=== PATIENT | female | born 1960 | race Caucasian/White ===

== ENCOUNTER → 2017-01-20 | Outpatient (CLI) | payer BC | LOC: US 15:49 | DX: M54.9 Dorsalgia, unspecified (principal); Z85.528 Personal history of other malignant neoplasm of kidney | CPT/HCPCS: 76775 ==

== ENCOUNTER → 2017-01-21 | Outpatient (CLI) | payer BC ==
[2017-01-21 08:30] LABS: HEMOGLOBIN 14.2 gm/dl (12.3-15.3); RED BLOOD COUNT 4.37 M/UL (4.00-5.10); WHITE BLOOD COUNT 11.8 K/UL (4.5-11.0)
== END ==
LOC: LAB 08:02
PROVIDERS: Internal Medicine
DX: Z13.1 Encounter for screening for diabetes mellitus (principal); E55.9 Vitamin D deficiency, unspecified; I10 Essential (primary) hypertension; E78.5 Hyperlipidemia, unspecified
CPT/HCPCS: 36415; 80053; 80061; 84439; 84443; 85025

== ENCOUNTER → 2017-01-30 | Outpatient (CLI) | payer BC | LOC: RAD 08:02 | DX: M54.9 Dorsalgia, unspecified (principal); M47.816 Spondylosis without myelopathy or radiculopathy, lumbar region; M47.814 Spondylosis without myelopathy or radiculopathy, thoracic region; M43.8X4 Other specified deforming dorsopathies, thoracic region | CPT/HCPCS: 72072; 72110 ==

== ENCOUNTER → 2021-10-02 | Outpatient (CLI) | payer BC ==
[~2021-10-02] MED LIST: NORCO 5-325 TA1 EACH PO; ZOFRAN4 MG PO
== END ==
LOC: WCC 09:37
DX: N76.6 Ulceration of vulva (principal); K52.9 Noninfective gastroenteritis and colitis, unspecified; T45.1X5A Adverse effect of antineoplastic and immunosuppressive drugs, initial encounter; L98.412 Non-pressure chronic ulcer of buttock with fat layer exposed; C64.9 Malignant neoplasm of unspecified kidney, except renal pelvis; C79.9 Secondary malignant neoplasm of unspecified site; I12.0 Hypertensive chronic kidney disease with stage 5 chronic kidney disease or end stage renal disease; N18.6 End stage renal disease; F17.210 Nicotine dependence, cigarettes, uncomplicated; Z88.1 Allergy status to other antibiotic agents; Z88.6 Allergy status to analgesic agent; Z92.21 Personal history of antineoplastic chemotherapy
CPT/HCPCS: G0463

== ENCOUNTER → 2021-10-09 | Outpatient (CLI) | payer BC | LOC: WCC 08:17 | DX: N76.6 Ulceration of vulva (principal); K52.9 Noninfective gastroenteritis and colitis, unspecified; C64.9 Malignant neoplasm of unspecified kidney, except renal pelvis; I10 Essential (primary) hypertension; Z72.0 Tobacco use; N18.6 End stage renal disease | CPT/HCPCS: G0463 ==

== ENCOUNTER 2021-11-29 10:45 | Emergency (ER) | payer BC ==
[2021-11-29 12:53] LABS: HEMOGLOBIN 14.5 gm/dl (12.3-15.3); RED BLOOD COUNT 4.01 M/UL (4.00-5.10); WHITE BLOOD COUNT 8.6 K/UL (4.5-11.0)
[2021-11-29 13:52] LABS: BUN/CREATININE RATIO 8 (0-10)
[2021-11-29] MEDS ORDERED: MOTION SICKNESS25 MG PO (14:54)
[2021-11-29] MEDS ORDERED: ONDANSETRON ODT4 MG SL (14:54)
[2021-11-29] MEDS ORDERED: AUGMENTIN 875-1 EACH PO (14:54)
== END 2021-11-29 16:08 | disposition home or self-care (01) ==
LOC: ER1 10:45
PROVIDERS: Physician Assistant
DX: U07.1 COVID-19 (principal); N39.0 Urinary tract infection, site not specified; J32.9 Chronic sinusitis, unspecified; R42 Dizziness and giddiness; F17.200 Nicotine dependence, unspecified, uncomplicated; Z85.528 Personal history of other malignant neoplasm of kidney
CPT/HCPCS: 70450; 71045; 80053; 81001; 82550; 82553; 83874; 84484; 85025; 87086; 93005; 94664; 96374; 99284; J2405

== ENCOUNTER → 2022-06-23 | Outpatient (CLI) | payer OTHER ==
[~2022-06-23] MED LIST changes: +AUGMENTIN 875-1 EACH PO; +MOTION SICKNESS25 MG PO; +ONDANSETRON ODT4 MG SL
== END ==
LOC: OPSV 09:58 → CT 10:00
DX: C64.2 Malignant neoplasm of left kidney, except renal pelvis (principal); E86.0 Dehydration; R91.1 Solitary pulmonary nodule; R93.421 Abnormal radiologic findings on diagnostic imaging of right kidney; K76.0 Fatty (change of) liver, not elsewhere classified
CPT/HCPCS: 71270; 96360; Q9967

== ENCOUNTER → 2022-07-15 | Outpatient (CLI) | payer OTHER | LOC: WCC 08:40 | DX: S31.809A Unspecified open wound of unspecified buttock, initial encounter (principal); K52.9 Noninfective gastroenteritis and colitis, unspecified; C64.9 Malignant neoplasm of unspecified kidney, except renal pelvis; I12.0 Hypertensive chronic kidney disease with stage 5 chronic kidney disease or end stage renal disease; N18.6 End stage renal disease; L03.317 Cellulitis of buttock; E66.01 Morbid (severe) obesity due to excess calories; Z72.0 Tobacco use; Z88.6 Allergy status to analgesic agent; Z92.21 Personal history of antineoplastic chemotherapy; X58.XXXA Exposure to other specified factors, initial encounter ==

== ENCOUNTER → 2022-07-22 | Outpatient (CLI) | payer OTHER | LOC: WCC 08:03 | DX: L03.317 Cellulitis of buttock (principal); K52.9 Noninfective gastroenteritis and colitis, unspecified; C64.9 Malignant neoplasm of unspecified kidney, except renal pelvis; I12.0 Hypertensive chronic kidney disease with stage 5 chronic kidney disease or end stage renal disease; N18.6 End stage renal disease; E66.01 Morbid (severe) obesity due to excess calories; Z88.1 Allergy status to other antibiotic agents; Z88.8 Allergy status to other drugs, medicaments and biological substances; Z72.0 Tobacco use; Z68.33 Body mass index [BMI] 33.0-33.9, adult | CPT/HCPCS: G0463 ==

== ENCOUNTER → 2022-07-30 | Outpatient (CLI) | payer OTHER | LOC: WCC 07:34 | DX: L03.317 Cellulitis of buttock (principal); C64.9 Malignant neoplasm of unspecified kidney, except renal pelvis; I12.0 Hypertensive chronic kidney disease with stage 5 chronic kidney disease or end stage renal disease; N18.6 End stage renal disease; K52.9 Noninfective gastroenteritis and colitis, unspecified; E66.01 Morbid (severe) obesity due to excess calories; Z72.0 Tobacco use | CPT/HCPCS: G0463 ==